=== PATIENT | female | born 1935 | race African-American/Black ===

== ENCOUNTER 2020-07-14 16:11 | Inpatient (IN) | payer MEDICARE ==
[2020-07-14 18:00] LABS: SARS-CoV-2 NAA Rapid Test Not Detected (NotDetected)
[2020-07-14] MEDS: Atorvastatin Calcium 40 MG TAB PO SCH (20:31)
[2020-07-14] MEDS: Carvedilol 3.125 MG TAB PO SCH (20:31)
[2020-07-14] MEDS: Nitroglycerin 0.4 MG TAB (25 Tab Bottle) SL PRN ×2 (23:23→23:31)
[2020-07-15 00:34] LABS: Anion Gap 14 mmol/L (10-20); BUN (Urea Nitrogen) 9 mg/dL (9.8-20.1); Calc. Creatinine Clearance 58 mL/min (70-130); Calcium 8.3 mg/dL (7.8-10.44); Carbon Dioxide 27 mmol/L (23-31); Chloride 97 mmol/L (98-107); Glucose 113 mg/dL (83-110); Lipase 68 U/L (8-78); Potassium 3.6 mmol/L (3.5-5.1); Sodium 134 mmol/L (136-145)
[2020-07-15 00:36] LABS: #Basophils 0.1 thou/uL (0.0-0.2); #Eosinphils 0.1 thou/uL (0.0-0.7); #Lymphocytes 1.1 thou/uL (1.20-3.40); #Monocytes 0.7 thou/uL (0.11-0.59); #Neutrophils 3.9 thou/uL (1.40-6.50); %Basophils 1.2 % (0.0-1.0); %Lymphocytes 19.3 % (21.0-51.0); %Monocytes 11.4 % (0.0-10.0); %Neutrophils 66.1 % (42.0-75.0); Hemoglobin 11.7 g/dL (12.0-16.0); Mean Corpuscular HGB CONC 31.7 g/dL (32.0-36.0); Mean Corpuscular Hemoglobin 26.2 pg (27.0-31.0); Mean Corpuscular Volume 82.8 fL (78.0-98.0); Mean Platelet Volume 6.9 fL (7.4-10.4); Platelet Count 269 thou/uL (130-400); RBC Distribution Width 14.1 % (11.5-14.5); Red Blood Cell (RBC) Count 4.46 mill/uL (4.20-5.40); White Blood Cell (WBC) Count 5.9 thou/uL (4.8-10.8)
[2020-07-15 00:39] LABS: Digoxin 0.61 ng/mL (0.8-2.0); Troponin I 0.712 ng/mL (< 0.028)
[2020-07-15 05:16] LABS: #Basophils 0.1 thou/uL (0.0-0.2); #Eosinphils 0.1 thou/uL (0.0-0.7); #Lymphocytes 1.2 thou/uL (1.20-3.40); #Monocytes 0.6 thou/uL (0.11-0.59); #Neutrophils 2.9 thou/uL (1.40-6.50); %Basophils 1.1 % (0.0-1.0); %Eosinophils 2.2 % (0.0-10.0); %Lymphocytes 23.7 % (21.0-51.0); %Monocytes 13.1 % (0.0-10.0); %Neutrophils 59.9 % (42.0-75.0); Hemoglobin 12.3 g/dL (12.0-16.0); Mean Corpuscular HGB CONC 30.3 g/dL (32.0-36.0); Mean Corpuscular Hemoglobin 25.7 pg (27.0-31.0); Mean Corpuscular Volume 84.7 fL (78.0-98.0); Mean Platelet Volume 7.1 fL (7.4-10.4); Platelet Count 271 thou/uL (130-400); RBC Distribution Width 14.2 % (11.5-14.5); Red Blood Cell (RBC) Count 4.78 mill/uL (4.20-5.40); White Blood Cell (WBC) Count 4.9 thou/uL (4.8-10.8)
[2020-07-15 05:33] LABS: ALT (SGPT) 38 U/L (8-55); AST (SGOT) 27 U/L (5-34); Albumin 3.1 g/dL (3.4-4.8); Alkaline Phosphatase 70 U/L (40-110); Anion Gap 15 mmol/L (10-20); BUN (Urea Nitrogen) 8 mg/dL (9.8-20.1); Bilirubin, Total 0.5 mg/dL (0.2-1.2); Calc. Creatinine Clearance 57 mL/min (70-130); Calcium 8.6 mg/dL (7.8-10.44); Carbon Dioxide 28 mmol/L (23-31); Chloride 98 mmol/L (98-107); Globulin 3.3 g/dL (2.4-3.5); Glucose 104 mg/dL (83-110); Potassium 3.8 mmol/L (3.5-5.1); Protein, Total 6.4 g/dL (5.8-8.1); Sodium 137 mmol/L (136-145)
[2020-07-15 06:32] LABS: Troponin I 2.262 ng/mL (< 0.028)
[2020-07-15] MEDS: Nitroglycerin 0.4 MG TAB (25 Tab Bottle) SL PRN ×3 (07:43→07:58)
[2020-07-15] MEDS ORDERED: Mag-Al Plus 1200 MG/1200 MG/120 MG/30 ML UDCUP ONE (08:16)
[2020-07-15] MEDS ORDERED: Lidocaine Viscous Sol 2% 15 ml UD Cup ONE (08:16)
[2020-07-15] MEDS ORDERED: Lidocaine Viscous Sol 2% 15 ml UD Cup SSP SCH (08:30)
[2020-07-15] MEDS ORDERED: Mag-Al Plus 1200 MG/1200 MG/120 MG/30 ML UDCUP PO SCH (08:30)
[2020-07-15] MEDS: Carvedilol 3.125 MG TAB PO SCH ×2 (08:38→21:07)
[2020-07-15] MEDS ORDERED: Furosemide 40 MG TAB PO SCH (09:00)
[2020-07-15] MEDS ORDERED: Clopidogrel Bisulfate 75 MG TAB PO SCH (09:00)
[2020-07-15] MEDS ORDERED: Digoxin 0.125 MG TAB PO SCH (09:00)
[2020-07-15] MEDS ORDERED: Aspirin 81 mg Enteric Coated Tablet PO SCH (09:00)
[2020-07-15 12:33] LABS: CKMB 2.4 ng/mL (0-6.6)
[2020-07-15] MEDS: Mag-Al Plus 1200 MG/1200 MG/120 MG/30 ML UDCUP PO PRN ×2 (17:03→23:40)
[2020-07-15 18:14] VITALS: BMI 27.3
[2020-07-15 19:26] VITALS: BP 104/62; TEMP 98
[2020-07-15] MEDS: Atorvastatin Calcium 40 MG TAB PO SCH (21:06)
== END 2020-07-16 02:34 | disposition short-term general hospital (02) | DRG 281 ==
LOC: NAV ACUTE 16:11
PROVIDERS: ADMIT Internal Medicine; ATTEND Internal Medicine
DX: I25.5 Ischemic cardiomyopathy (principal); I22.2 Subsequent non-ST elevation (NSTEMI) myocardial infarction; I50.22 Chronic systolic (congestive) heart failure; K21.9 Gastro-esophageal reflux disease without esophagitis; I25.110 Atherosclerotic heart disease of native coronary artery with unstable angina pectoris; I25.10 Atherosclerotic heart disease of native coronary artery without angina pectoris; E78.5 Hyperlipidemia, unspecified; Z95.5 Presence of coronary angioplasty implant and graft; Z83.3 Family history of diabetes mellitus; Z82.49 Family history of ischemic heart disease and other diseases of the circulatory system; Z88.5 Allergy status to narcotic agent; Z79.02 Long term (current) use of antithrombotics/antiplatelets; R53.81 Other malaise
CPT/HCPCS: 0240U; 36415; 80053; 80162; 82553; 83690; 84484; 85025

== ENCOUNTER 2020-07-16 00:35 | Emergency (ER) | payer MEDICARE ==
[2020-07-16 00:55] LABS: #Basophils 0.1 thou/uL (0.0-0.2); #Eosinphils 0.1 thou/uL (0.0-0.7); #Lymphocytes 1.3 thou/uL (1.20-3.40); #Monocytes 0.6 thou/uL (0.11-0.59); #Neutrophils 2.9 thou/uL (1.40-6.50); %Basophils 1.4 % (0.0-1.0); %Eosinophils 2.2 % (0.0-10.0); %Lymphocytes 26.3 % (21.0-51.0); %Monocytes 12.6 % (0.0-10.0); %Neutrophils 57.6 % (42.0-75.0); Hemoglobin 12.1 g/dL (12.0-16.0); Mean Corpuscular HGB CONC 30.8 g/dL (32.0-36.0); Mean Corpuscular Hemoglobin 25.9 pg (27.0-31.0); Mean Platelet Volume 7.4 fL (7.4-10.4); Platelet Count 283 thou/uL (130-400); RBC Distribution Width 14.1 % (11.5-14.5); Red Blood Cell (RBC) Count 4.69 mill/uL (4.20-5.40)
[2020-07-16] MEDS ORDERED: Aspirin Chewable 81 MG TAB ONE (01:07)
[2020-07-16 01:09] LABS: ALT (SGPT) 34 U/L (8-55); AST (SGOT) 24 U/L (5-34); Albumin 3.2 g/dL (3.4-4.8); Alkaline Phosphatase 76 U/L (40-110); Anion Gap 15 mmol/L (10-20); BUN (Urea Nitrogen) 8 mg/dL (9.8-20.1); Bilirubin, Total 0.4 mg/dL (0.2-1.2); Calc. Creatinine Clearance 0 mL/min (70-130); Calcium 8.8 mg/dL (7.8-10.44); Carbon Dioxide 27 mmol/L (23-31); Chloride 98 mmol/L (98-107); Globulin 3.4 g/dL (2.4-3.5); Glucose 114 mg/dL (83-110); Lipase 50 U/L (8-78); Protein, Total 6.6 g/dL (5.8-8.1); Sodium 136 mmol/L (136-145)
[2020-07-16] MEDS ORDERED: Sodium Chloride 0.9% 500 ML ONE (01:17)
[2020-07-16 01:32] LABS: CKMB 2.4 ng/mL (0-6.6)
== END 2020-07-16 02:29 | disposition short-term general hospital (02) ==
LOC: NAV ERS 00:35
DX: R07.9 Chest pain, unspecified (principal); R77.8 Other specified abnormalities of plasma proteins; I25.10 Atherosclerotic heart disease of native coronary artery without angina pectoris; I25.2 Old myocardial infarction; E78.5 Hyperlipidemia, unspecified; I11.0 Hypertensive heart disease with heart failure; I50.9 Heart failure, unspecified; Z79.899 Other long term (current) drug therapy; Z79.82 Long term (current) use of aspirin
CPT/HCPCS: 71045; 80053; 82553; 83690; 84484; 85025; 93005; J7030

== ENCOUNTER 2020-07-23 16:50 | Inpatient (IN) | payer MEDICARE ==
[2020-07-23] MEDS: Carvedilol 3.125 MG TAB PO SCH (20:38)
[2020-07-23] MEDS: Atorvastatin Calcium 40 MG TAB PO SCH (20:38)
[2020-07-23] MEDS: Simethicone Chewable 80 MG TAB PO PRN (22:22)
[2020-07-23] MEDS: Mag-Al Plus 1200 MG/1200 MG/120 MG/30 ML UDCUP PO PRN (22:25)
[2020-07-24] MEDS ORDERED: Ubidecarenone 50 MG CAP PO SCH (00:15)
[2020-07-24] MEDS: Mag-Al Plus 1200 MG/1200 MG/120 MG/30 ML UDCUP PO PRN ×2 (06:10→10:33)
[2020-07-24] MEDS: Simethicone Chewable 80 MG TAB PO PRN (06:10)
[2020-07-24 07:07] LABS: ALT (SGPT) 15 U/L (8-55); AST (SGOT) 15 U/L (5-34); Albumin 3.2 g/dL (3.4-4.8); Alkaline Phosphatase 73 U/L (40-110); Anion Gap 13 mmol/L (10-20); BUN (Urea Nitrogen) 14 mg/dL (9.8-20.1); Bilirubin, Total 0.4 mg/dL (0.2-1.2); Calc. Creatinine Clearance 66 mL/min (70-130); Calcium 8.7 mg/dL (7.8-10.44); Carbon Dioxide 29 mmol/L (23-31); Chloride 97 mmol/L (98-107); Globulin 3.3 g/dL (2.4-3.5); Glucose 138 mg/dL (83-110); Potassium 3.9 mmol/L (3.5-5.1); Protein, Total 6.5 g/dL (5.8-8.1); Sodium 135 mmol/L (136-145)
[2020-07-24 07:20] LABS: #Basophils 0.1 thou/uL (0.0-0.2); #Eosinphils 0.2 thou/uL (0.0-0.7); #Lymphocytes 1.2 thou/uL (1.20-3.40); #Monocytes 0.7 thou/uL (0.11-0.59); #Neutrophils 3.2 thou/uL (1.40-6.50); %Basophils 1.3 % (0.0-1.0); %Eosinophils 3.4 % (0.0-10.0); %Lymphocytes 22.2 % (21.0-51.0); %Monocytes 12.8 % (0.0-10.0); %Neutrophils 60.3 % (42.0-75.0); Hemoglobin 12.8 g/dL (12.0-16.0); Mean Corpuscular HGB CONC 30.3 g/dL (32.0-36.0); Mean Corpuscular Hemoglobin 25.5 pg (27.0-31.0); Mean Corpuscular Volume 84.3 fL (78.0-98.0); Mean Platelet Volume 7.6 fL (7.4-10.4); Platelet Count 257 thou/uL (130-400); RBC Distribution Width 14.6 % (11.5-14.5); Red Blood Cell (RBC) Count 5.01 mill/uL (4.20-5.40); White Blood Cell (WBC) Count 5.3 thou/uL (4.8-10.8)
[2020-07-24] MEDS: Clopidogrel Bisulfate 75 MG TAB PO SCH (09:12)
[2020-07-24] MEDS: Digoxin 0.125 MG TAB PO SCH (09:13)
[2020-07-24] MEDS: Aspirin 81 mg Enteric Coated Tablet PO SCH (09:13)
[2020-07-24] MEDS: Magnesium Oxide 400 MG TAB PO SCH ×2 (09:13→17:35)
[2020-07-24] MEDS: Carvedilol 3.125 MG TAB PO SCH ×2 (09:13→20:17)
[2020-07-24] MEDS: clonazePAM 0.5 MG TAB PO PRN ×2 (10:33→20:16)
[2020-07-24] MEDS: Ubidecarenone 50 MG CAP PO SCH (17:35)
[2020-07-24] MEDS: PRENATAL VITAMINS PO SCH (17:36)
[2020-07-24] MEDS: Atorvastatin Calcium 40 MG TAB PO SCH (20:16)
[2020-07-25] MEDS: Torsemide 20 MG TAB PO SCH ×2 (07:19→12:00)
[2020-07-25] MEDS: Aspirin 81 mg Enteric Coated Tablet PO SCH (09:04)
[2020-07-25] MEDS: Magnesium Oxide 400 MG TAB PO SCH ×2 (09:05→16:14)
[2020-07-25] MEDS: Carvedilol 3.125 MG TAB PO SCH ×2 (09:05→21:23)
[2020-07-25] MEDS: Clopidogrel Bisulfate 75 MG TAB PO SCH (09:06)
[2020-07-25] MEDS: Digoxin 0.125 MG TAB PO SCH (09:06)
[2020-07-25] MEDS: Ubidecarenone 50 MG CAP PO SCH (16:13)
[2020-07-25] MEDS: PRENATAL VITAMINS PO SCH (16:14)
[2020-07-25] MEDS: clonazePAM 0.5 MG TAB PO PRN (16:14)
[2020-07-25] MEDS: Nitroglycerin 0.4 MG TAB (25 Tab Bottle) SL PRN ×2 (16:21→16:45)
[2020-07-25] MEDS: Atorvastatin Calcium 40 MG TAB PO SCH (21:23)
[2020-07-25] MEDS: Mag-Al Plus 1200 MG/1200 MG/120 MG/30 ML UDCUP PO PRN (21:30)
[2020-07-25] MEDS: Simethicone Chewable 80 MG TAB PO PRN (23:03)
[2020-07-26] MEDS: Mag-Al Plus 1200 MG/1200 MG/120 MG/30 ML UDCUP PO PRN (02:20)
[2020-07-26] MEDS: clonazePAM 0.5 MG TAB PO PRN ×2 (02:20→19:03)
[2020-07-26] MEDS: Aspirin 81 mg Enteric Coated Tablet PO SCH (09:13)
[2020-07-26] MEDS: Magnesium Oxide 400 MG TAB PO SCH ×2 (09:14→16:23)
[2020-07-26] MEDS: Clopidogrel Bisulfate 75 MG TAB PO SCH (09:14)
[2020-07-26] MEDS: Digoxin 0.125 MG TAB PO SCH (09:14)
[2020-07-26] MEDS: Carvedilol 3.125 MG TAB PO SCH ×2 (09:16→20:52)
[2020-07-26] MEDS: Torsemide 20 MG TAB PO SCH (12:28)
[2020-07-26] MEDS: Ubidecarenone 50 MG CAP PO SCH (16:23)
[2020-07-26] MEDS: PRENATAL VITAMINS PO SCH (16:24)
[2020-07-26] MEDS: Nitroglycerin 0.4 MG TAB (25 Tab Bottle) SL PRN (19:04)
[2020-07-26] MEDS: Atorvastatin Calcium 40 MG TAB PO SCH (20:52)
[2020-07-27] MEDS: Clopidogrel Bisulfate 75 MG TAB PO SCH (08:12)
[2020-07-27] MEDS: Aspirin 81 mg Enteric Coated Tablet PO SCH (08:12)
[2020-07-27] MEDS: Magnesium Oxide 400 MG TAB PO SCH ×2 (08:13→17:40)
[2020-07-27] MEDS: Mag-Al Plus 1200 MG/1200 MG/120 MG/30 ML UDCUP PO PRN ×2 (08:20→13:35)
[2020-07-27] MEDS: clonazePAM 0.5 MG TAB PO PRN ×2 (08:21→20:42)
[2020-07-27] MEDS: Digoxin 0.125 MG TAB PO SCH (08:27)
[2020-07-27] MEDS: Carvedilol 3.125 MG TAB PO SCH ×2 (08:37→20:41)
[2020-07-27] MEDS: Simethicone Chewable 80 MG TAB PO PRN (11:18)
[2020-07-27] MEDS: Torsemide 20 MG TAB PO SCH (12:56)
[2020-07-27] MEDS: Ubidecarenone 50 MG CAP PO SCH (17:40)
[2020-07-27] MEDS: PRENATAL VITAMINS PO SCH (17:41)
[2020-07-27] MEDS: Atorvastatin Calcium 40 MG TAB PO SCH (20:40)
[2020-07-28] MEDS: Mag-Al Plus 1200 MG/1200 MG/120 MG/30 ML UDCUP PO PRN (06:25)
[2020-07-28] MEDS: Digoxin 0.125 MG TAB PO SCH (09:07)
[2020-07-28] MEDS: Magnesium Oxide 400 MG TAB PO SCH ×2 (09:07→16:00)
[2020-07-28] MEDS: Aspirin 81 mg Enteric Coated Tablet PO SCH (09:07)
[2020-07-28] MEDS: Clopidogrel Bisulfate 75 MG TAB PO SCH (09:07)
[2020-07-28] MEDS: Carvedilol 3.125 MG TAB PO SCH ×2 (09:07→21:03)
[2020-07-28] MEDS: Torsemide 20 MG TAB PO SCH (11:56)
[2020-07-28] MEDS: Simethicone Chewable 80 MG TAB PO PRN (11:56)
[2020-07-28] MEDS ORDERED: Ondansetron ODT 4 MG TAB PO PRN (15:51)
[2020-07-28] MEDS: Ubidecarenone 50 MG CAP PO SCH (16:00)
[2020-07-28] MEDS: PRENATAL VITAMINS PO SCH (16:30)
[2020-07-28] MEDS: Atorvastatin Calcium 40 MG TAB PO SCH (21:02)
[2020-07-28] MEDS: clonazePAM 0.5 MG TAB PO PRN (21:03)
[2020-07-29] MEDS: Mag-Al Plus 1200 MG/1200 MG/120 MG/30 ML UDCUP PO PRN ×2 (04:05→20:58)
[2020-07-29] MEDS: Clopidogrel Bisulfate 75 MG TAB PO SCH (08:32)
[2020-07-29] MEDS: Digoxin 0.125 MG TAB PO SCH (08:32)
[2020-07-29] MEDS: Magnesium Oxide 400 MG TAB PO SCH ×2 (08:32→17:37)
[2020-07-29] MEDS: Aspirin 81 mg Enteric Coated Tablet PO SCH (08:32)
[2020-07-29] MEDS: Carvedilol 3.125 MG TAB PO SCH ×2 (08:32→20:56)
[2020-07-29] MEDS: Torsemide 20 MG TAB PO SCH (12:48)
[2020-07-29] MEDS: PRENATAL VITAMINS PO SCH (17:37)
[2020-07-29] MEDS: Ubidecarenone 50 MG CAP PO SCH (17:37)
[2020-07-29] MEDS: Simethicone Chewable 80 MG TAB PO PRN (18:44)
[2020-07-29] MEDS: Atorvastatin Calcium 40 MG TAB PO SCH (20:56)
[2020-07-29] MEDS: clonazePAM 0.5 MG TAB PO PRN (20:57)
[2020-07-30] MEDS: Mag-Al Plus 1200 MG/1200 MG/120 MG/30 ML UDCUP PO PRN (05:44)
[2020-07-30] MEDS: Aspirin 81 mg Enteric Coated Tablet PO SCH (08:30)
[2020-07-30] MEDS: Digoxin 0.125 MG TAB PO SCH (08:30)
[2020-07-30] MEDS: Carvedilol 3.125 MG TAB PO SCH ×2 (08:30→21:36)
[2020-07-30] MEDS: Clopidogrel Bisulfate 75 MG TAB PO SCH (08:30)
[2020-07-30] MEDS: Magnesium Oxide 400 MG TAB PO SCH ×2 (08:30→17:18)
[2020-07-30] MEDS: Torsemide 20 MG TAB PO SCH (12:16)
[2020-07-30] MEDS: Ubidecarenone 50 MG CAP PO SCH (17:19)
[2020-07-30] MEDS: PRENATAL VITAMINS PO SCH (17:19)
[2020-07-30] MEDS: Atorvastatin Calcium 40 MG TAB PO SCH (21:36)
[2020-07-31] MEDS: Aspirin 81 mg Enteric Coated Tablet PO SCH (08:34)
[2020-07-31] MEDS: Carvedilol 3.125 MG TAB PO SCH ×3 (08:34→21:50)
[2020-07-31] MEDS: Clopidogrel Bisulfate 75 MG TAB PO SCH (08:34)
[2020-07-31] MEDS: Magnesium Oxide 400 MG TAB PO SCH ×2 (08:34→17:54)
[2020-07-31] MEDS: Digoxin 0.125 MG TAB PO SCH (08:35)
[2020-07-31] MEDS: Torsemide 20 MG TAB PO SCH (11:42)
[2020-07-31] MEDS: Ubidecarenone 50 MG CAP PO SCH (17:54)
[2020-07-31] MEDS: PRENATAL VITAMINS PO SCH (17:54)
[2020-07-31] MEDS: Mirtazapine 15 MG TAB PO SCH (20:44)
[2020-07-31] MEDS: Atorvastatin Calcium 40 MG TAB PO SCH (20:44)
[2020-08-01] MEDS: Clopidogrel Bisulfate 75 MG TAB PO SCH (08:34)
[2020-08-01] MEDS: Magnesium Oxide 400 MG TAB PO SCH ×2 (08:34→17:35)
[2020-08-01] MEDS: Digoxin 0.125 MG TAB PO SCH (08:34)
[2020-08-01] MEDS: Aspirin 81 mg Enteric Coated Tablet PO SCH (08:35)
[2020-08-01] MEDS: Carvedilol 3.125 MG TAB PO SCH ×2 (08:35→20:25)
[2020-08-01] MEDS: Torsemide 20 MG TAB PO SCH (12:55)
[2020-08-01] MEDS: PRENATAL VITAMINS PO SCH (17:34)
[2020-08-01] MEDS: Ubidecarenone 50 MG CAP PO SCH (17:34)
[2020-08-01] MEDS: Atorvastatin Calcium 40 MG TAB PO SCH (20:25)
[2020-08-01] MEDS: Mirtazapine 15 MG TAB PO SCH (20:26)
[2020-08-02] MEDS: Magnesium Oxide 400 MG TAB PO SCH ×2 (08:18→16:25)
[2020-08-02] MEDS: Clopidogrel Bisulfate 75 MG TAB PO SCH (08:18)
[2020-08-02] MEDS: Digoxin 0.125 MG TAB PO SCH (08:18)
[2020-08-02] MEDS: Carvedilol 3.125 MG TAB PO SCH ×2 (08:20→21:16)
[2020-08-02] MEDS: Aspirin 81 mg Enteric Coated Tablet PO SCH (08:20)
[2020-08-02] MEDS: Torsemide 20 MG TAB PO SCH (12:35)
[2020-08-02] MEDS: PRENATAL VITAMINS PO SCH (16:19)
[2020-08-02] MEDS: Ubidecarenone 50 MG CAP PO SCH (16:25)
[2020-08-02] MEDS: Atorvastatin Calcium 40 MG TAB PO SCH (21:16)
[2020-08-02] MEDS: Mirtazapine 15 MG TAB PO SCH (21:16)
[2020-08-03] MEDS: Clopidogrel Bisulfate 75 MG TAB PO SCH (08:52)
[2020-08-03] MEDS: Carvedilol 3.125 MG TAB PO SCH ×2 (08:52→20:16)
[2020-08-03] MEDS: Magnesium Oxide 400 MG TAB PO SCH ×2 (08:52→16:06)
[2020-08-03] MEDS: Aspirin 81 mg Enteric Coated Tablet PO SCH (08:52)
[2020-08-03] MEDS: Digoxin 0.125 MG TAB PO SCH (08:52)
[2020-08-03] MEDS: Torsemide 20 MG TAB PO SCH (11:40)
[2020-08-03] MEDS: Ubidecarenone 50 MG CAP PO SCH (16:06)
[2020-08-03] MEDS: PRENATAL VITAMINS PO SCH (16:06)
[2020-08-03] MEDS: Atorvastatin Calcium 40 MG TAB PO SCH (20:16)
[2020-08-03] MEDS: Mirtazapine 15 MG TAB PO SCH (20:16)
[2020-08-04] MEDS: Magnesium Oxide 400 MG TAB PO SCH ×2 (08:54→16:12)
[2020-08-04] MEDS: Aspirin 81 mg Enteric Coated Tablet PO SCH (08:55)
[2020-08-04] MEDS: Clopidogrel Bisulfate 75 MG TAB PO SCH (08:55)
[2020-08-04] MEDS: Carvedilol 3.125 MG TAB PO SCH ×2 (08:56→21:23)
[2020-08-04] MEDS: Digoxin 0.125 MG TAB PO SCH (08:56)
[2020-08-04] MEDS: Torsemide 20 MG TAB PO SCH (12:31)
[2020-08-04] MEDS: Ubidecarenone 50 MG CAP PO SCH (16:12)
[2020-08-04] MEDS: PRENATAL VITAMINS PO SCH (16:14)
[2020-08-04] MEDS: Mirtazapine 15 MG TAB PO SCH (21:22)
[2020-08-04] MEDS: Atorvastatin Calcium 40 MG TAB PO SCH (21:22)
[2020-08-05] MEDS: Aspirin 81 mg Enteric Coated Tablet PO SCH (08:47)
[2020-08-05] MEDS: Digoxin 0.125 MG TAB PO SCH (08:47)
[2020-08-05] MEDS: Clopidogrel Bisulfate 75 MG TAB PO SCH (08:47)
[2020-08-05] MEDS: Magnesium Oxide 400 MG TAB PO SCH ×2 (08:47→17:43)
[2020-08-05] MEDS: Carvedilol 3.125 MG TAB PO SCH ×2 (08:48→21:22)
[2020-08-05] MEDS: Torsemide 20 MG TAB PO SCH (12:56)
[2020-08-05 16:08] VITALS: BMI 30.3
[2020-08-05] MEDS: PRENATAL VITAMINS PO SCH (17:43)
[2020-08-05] MEDS: Ubidecarenone 50 MG CAP PO SCH (17:43)
[2020-08-05] MEDS: Atorvastatin Calcium 40 MG TAB PO SCH (21:22)
[2020-08-05] MEDS: Mirtazapine 15 MG TAB PO SCH (21:22)
[2020-08-06] MEDS: Magnesium Oxide 400 MG TAB PO SCH ×2 (08:37→16:28)
[2020-08-06] MEDS: Clopidogrel Bisulfate 75 MG TAB PO SCH (08:37)
[2020-08-06] MEDS: Aspirin 81 mg Enteric Coated Tablet PO SCH (08:37)
[2020-08-06] MEDS: Digoxin 0.125 MG TAB PO SCH (08:37)
[2020-08-06] MEDS: Carvedilol 3.125 MG TAB PO SCH ×2 (08:37→20:57)
[2020-08-06] MEDS: Torsemide 20 MG TAB PO SCH (11:40)
[2020-08-06] MEDS: Ubidecarenone 50 MG CAP PO SCH (16:28)
[2020-08-06] MEDS: PRENATAL VITAMINS PO SCH (16:31)
[2020-08-06] MEDS: Atorvastatin Calcium 40 MG TAB PO SCH (20:56)
[2020-08-06] MEDS: Mirtazapine 15 MG TAB PO SCH (21:01)
[2020-08-07 08:41] VITALS: BP 111/70; TEMP 97.2
[2020-08-07] MEDS: Aspirin 81 mg Enteric Coated Tablet PO SCH (09:00)
[2020-08-07] MEDS: Carvedilol 3.125 MG TAB PO SCH (09:00)
[2020-08-07] MEDS: Magnesium Oxide 400 MG TAB PO SCH ×2 (09:00→16:31)
[2020-08-07] MEDS: Digoxin 0.125 MG TAB PO SCH (09:01)
[2020-08-07] MEDS: Clopidogrel Bisulfate 75 MG TAB PO SCH (09:01)
[2020-08-07] MEDS: Torsemide 20 MG TAB PO SCH (11:32)
[2020-08-07] MEDS: Ubidecarenone 50 MG CAP PO SCH (16:31)
[2020-08-07] MEDS: PRENATAL VITAMINS PO SCH (16:32)
== END 2020-08-07 19:00 | disposition home health service (06) | DRG 947 ==
LOC: NAV ACUTE 16:50
PROVIDERS: ADMIT Internal Medicine; ATTEND Internal Medicine
DX: R53.81 Other malaise (principal); I22.2 Subsequent non-ST elevation (NSTEMI) myocardial infarction; I50.22 Chronic systolic (congestive) heart failure; I25.10 Atherosclerotic heart disease of native coronary artery without angina pectoris; I25.5 Ischemic cardiomyopathy; E78.5 Hyperlipidemia, unspecified; K21.9 Gastro-esophageal reflux disease without esophagitis; F41.9 Anxiety disorder, unspecified; R63.0 Anorexia; Z95.5 Presence of coronary angioplasty implant and graft; Z88.5 Allergy status to narcotic agent; Z91.011 Allergy to milk products; Z68.30 Body mass index [BMI] 30.0-30.9, adult
CPT/HCPCS: 71045; 80053; 85025; Q0162

== ENCOUNTER 2020-08-29 17:03 | Inpatient (IN) | payer MEDICARE ==
[2020-08-29] MEDS ORDERED: Nitroglycerin 0.4 MG TAB (25 Tab Bottle) SL PRN (23:28)
[2020-08-30 05:35] LABS: #Basophils 0.1 thou/uL (0.0-0.2); #Eosinphils 0.3 thou/uL (0.0-0.7); #Lymphocytes 1.7 thou/uL (1.20-3.40); #Monocytes 0.7 thou/uL (0.11-0.59); #Neutrophils 2.9 thou/uL (1.40-6.50); %Basophils 1.4 % (0.0-1.0); %Eosinophils 5.4 % (0.0-10.0); %Lymphocytes 30.2 % (21.0-51.0); %Monocytes 12.9 % (0.0-10.0); %Neutrophils 50.2 % (42.0-75.0); Hemoglobin 12.8 g/dL (12.0-16.0); Mean Corpuscular HGB CONC 31.2 g/dL (32.0-36.0); Mean Corpuscular Hemoglobin 26.1 pg (27.0-31.0); Mean Corpuscular Volume 83.6 fL (78.0-98.0); Mean Platelet Volume 7.7 fL (7.4-10.4); Platelet Count 235 thou/uL (130-400); RBC Distribution Width 16.6 % (11.5-14.5); White Blood Cell (WBC) Count 5.7 thou/uL (4.8-10.8)
[2020-08-30 05:49] LABS: ALT (SGPT) 10 U/L (8-55); AST (SGOT) 17 U/L (5-34); Albumin 3.1 g/dL (3.4-4.8); Alkaline Phosphatase 54 U/L (40-110); Anion Gap 15 mmol/L (10-20); BUN (Urea Nitrogen) 11 mg/dL (9.8-20.1); Bilirubin, Total 0.7 mg/dL (0.2-1.2); Calc. Creatinine Clearance 57 mL/min (70-130); Calcium 8.7 mg/dL (7.8-10.44); Carbon Dioxide 26 mmol/L (23-31); Chloride 100 mmol/L (98-107); Globulin 3.5 g/dL (2.4-3.5); Glucose 82 mg/dL (83-110); Potassium 3.9 mmol/L (3.5-5.1); Protein, Total 6.6 g/dL (5.8-8.1); Sodium 137 mmol/L (136-145)
[2020-08-30] MEDS: Polyethylene Glycol 3350 17 GM Packet PO SCH (09:40)
[2020-08-30] MEDS: Aspirin 81 mg Enteric Coated Tablet PO SCH (09:40)
[2020-08-30] MEDS: Potassium Chloride 20 MEQ TAB PO SCH (09:40)
[2020-08-30] MEDS: Clopidogrel Bisulfate 75 MG TAB PO SCH (09:41)
[2020-08-30] MEDS: Furosemide 40 MG TAB PO SCH ×2 (09:41→15:13)
[2020-08-30] MEDS: Spironolactone 25 MG TAB PO SCH (09:41)
[2020-08-30] MEDS: Carvedilol 3.125 MG TAB PO SCH ×2 (09:41→21:00)
[2020-08-30] MEDS: [UNRECOGNIZED DRUG - REMARK] PO SCH (16:35)
[2020-08-30] MEDS: Ubidecarenone 50 MG CAP PO SCH (16:36)
[2020-08-30] MEDS: Atorvastatin Calcium 40 MG TAB PO SCH (21:00)
[2020-08-30] MEDS: Simethicone Chewable 80 MG TAB PO PRN (21:00)
[2020-08-31] MEDS: Spironolactone 25 MG TAB PO SCH (12:05)
[2020-08-31] MEDS: Clopidogrel Bisulfate 75 MG TAB PO SCH (12:06)
[2020-08-31] MEDS: Furosemide 40 MG TAB PO SCH ×2 (12:06→13:24)
[2020-08-31] MEDS: Carvedilol 3.125 MG TAB PO SCH ×2 (12:06→20:13)
[2020-08-31] MEDS: Polyethylene Glycol 3350 17 GM Packet PO SCH (12:06)
[2020-08-31] MEDS: Potassium Chloride 20 MEQ TAB PO SCH (12:06)
[2020-08-31] MEDS: Aspirin 81 mg Enteric Coated Tablet PO SCH (12:06)
[2020-08-31] MEDS: Mag-Al Plus 1200 MG/1200 MG/120 MG/30 ML UDCUP PO PRN ×2 (13:23→20:12)
[2020-08-31] MEDS: clonazePAM 0.5 MG TAB PO PRN ×2 (13:23→20:23)
[2020-08-31] MEDS: Ubidecarenone 50 MG CAP PO SCH (18:26)
[2020-08-31] MEDS: [UNRECOGNIZED DRUG - REMARK] PO SCH (18:32)
[2020-08-31] MEDS: Atorvastatin Calcium 40 MG TAB PO SCH (20:13)
[2020-09-01] MEDS: Aspirin 81 mg Enteric Coated Tablet PO SCH (08:48)
[2020-09-01] MEDS: Carvedilol 3.125 MG TAB PO SCH ×2 (08:48→21:00)
[2020-09-01] MEDS: Spironolactone 25 MG TAB PO SCH (08:48)
[2020-09-01] MEDS: Potassium Chloride 20 MEQ TAB PO SCH (08:49)
[2020-09-01] MEDS: Furosemide 40 MG TAB PO SCH ×2 (08:49→14:59)
[2020-09-01] MEDS: Clopidogrel Bisulfate 75 MG TAB PO SCH (08:49)
[2020-09-01] MEDS: Polyethylene Glycol 3350 17 GM Packet PO SCH (08:49)
[2020-09-01] MEDS: Ubidecarenone 50 MG CAP PO SCH (17:22)
[2020-09-01] MEDS: [UNRECOGNIZED DRUG - REMARK] PO SCH (18:29)
[2020-09-01] MEDS: Atorvastatin Calcium 40 MG TAB PO SCH (21:00)
[2020-09-02] MEDS: Carvedilol 3.125 MG TAB PO SCH ×2 (09:16→21:48)
[2020-09-02] MEDS: Spironolactone 25 MG TAB PO SCH (09:16)
[2020-09-02] MEDS: Aspirin 81 mg Enteric Coated Tablet PO SCH (09:16)
[2020-09-02] MEDS: Potassium Chloride 20 MEQ TAB PO SCH (09:17)
[2020-09-02] MEDS: Polyethylene Glycol 3350 17 GM Packet PO SCH (09:17)
[2020-09-02] MEDS: Clopidogrel Bisulfate 75 MG TAB PO SCH (09:17)
[2020-09-02] MEDS: Furosemide 40 MG TAB PO SCH ×2 (09:17→14:52)
[2020-09-02] MEDS: Simethicone Chewable 80 MG TAB PO PRN (09:17)
[2020-09-02] MEDS: [UNRECOGNIZED DRUG - REMARK] PO SCH (17:19)
[2020-09-02] MEDS: Ubidecarenone 50 MG CAP PO SCH (17:20)
[2020-09-02] MEDS: Atorvastatin Calcium 40 MG TAB PO SCH (21:48)
[2020-09-03] MEDS: Potassium Chloride 20 MEQ TAB PO SCH (10:04)
[2020-09-03] MEDS: Aspirin 81 mg Enteric Coated Tablet PO SCH (10:04)
[2020-09-03] MEDS: Carvedilol 3.125 MG TAB PO SCH ×2 (10:05→21:42)
[2020-09-03] MEDS: Spironolactone 25 MG TAB PO SCH (10:05)
[2020-09-03] MEDS: Furosemide 40 MG TAB PO SCH ×2 (10:05→13:12)
[2020-09-03] MEDS: Clopidogrel Bisulfate 75 MG TAB PO SCH (10:05)
[2020-09-03] MEDS: Polyethylene Glycol 3350 17 GM Packet PO SCH ×2 (10:06→10:10)
[2020-09-03] MEDS: Ubidecarenone 50 MG CAP PO SCH (17:42)
[2020-09-03] MEDS: [UNRECOGNIZED DRUG - REMARK] PO SCH (17:42)
[2020-09-03] MEDS: Atorvastatin Calcium 40 MG TAB PO SCH (21:42)
[2020-09-04] MEDS: Clopidogrel Bisulfate 75 MG TAB PO SCH (09:45)
[2020-09-04] MEDS: Aspirin 81 mg Enteric Coated Tablet PO SCH (09:45)
[2020-09-04] MEDS: Spironolactone 25 MG TAB PO SCH (09:45)
[2020-09-04] MEDS: Potassium Chloride 20 MEQ TAB PO SCH (09:45)
[2020-09-04] MEDS: Carvedilol 3.125 MG TAB PO SCH ×2 (09:45→22:04)
[2020-09-04] MEDS: Polyethylene Glycol 3350 17 GM Packet PO SCH (09:46)
[2020-09-04] MEDS: Furosemide 40 MG TAB PO SCH ×2 (09:46→13:13)
[2020-09-04] MEDS: [UNRECOGNIZED DRUG - REMARK] PO SCH (17:26)
[2020-09-04] MEDS: Ubidecarenone 50 MG CAP PO SCH (17:26)
[2020-09-04] MEDS: Atorvastatin Calcium 40 MG TAB PO SCH (22:04)
[2020-09-04] MEDS: Mirtazapine 15 MG TAB PO SCH (22:04)
[2020-09-05] MEDS: Carvedilol 3.125 MG TAB PO SCH ×2 (09:51→21:34)
[2020-09-05] MEDS: Furosemide 40 MG TAB PO SCH ×2 (09:51→15:02)
[2020-09-05] MEDS: Potassium Chloride 20 MEQ TAB PO SCH (09:51)
[2020-09-05] MEDS: Polyethylene Glycol 3350 17 GM Packet PO SCH (09:52)
[2020-09-05] MEDS: Clopidogrel Bisulfate 75 MG TAB PO SCH (09:52)
[2020-09-05] MEDS: Aspirin 81 mg Enteric Coated Tablet PO SCH (09:52)
[2020-09-05] MEDS: Spironolactone 25 MG TAB PO SCH (09:52)
[2020-09-05] MEDS: [UNRECOGNIZED DRUG - REMARK] PO SCH (16:36)
[2020-09-05] MEDS: Ubidecarenone 50 MG CAP PO SCH (16:39)
[2020-09-05] MEDS: Mirtazapine 15 MG TAB PO SCH (21:34)
[2020-09-05] MEDS: Atorvastatin Calcium 40 MG TAB PO SCH (21:35)
[2020-09-06] MEDS: Potassium Chloride 20 MEQ TAB PO SCH (09:43)
[2020-09-06] MEDS: Furosemide 40 MG TAB PO SCH ×2 (09:43→14:28)
[2020-09-06] MEDS: Clopidogrel Bisulfate 75 MG TAB PO SCH (09:43)
[2020-09-06] MEDS: Polyethylene Glycol 3350 17 GM Packet PO SCH (09:43)
[2020-09-06] MEDS: Aspirin 81 mg Enteric Coated Tablet PO SCH (09:43)
[2020-09-06] MEDS: clonazePAM 0.5 MG TAB PO PRN (10:27)
[2020-09-06] MEDS: Carvedilol 3.125 MG TAB PO SCH ×2 (11:22→20:47)
[2020-09-06] MEDS: Spironolactone 25 MG TAB PO SCH (11:22)
[2020-09-06] MEDS: [UNRECOGNIZED DRUG - REMARK] PO SCH (17:29)
[2020-09-06] MEDS: Ubidecarenone 50 MG CAP PO SCH (17:29)
[2020-09-06] MEDS: Atorvastatin Calcium 40 MG TAB PO SCH (20:46)
[2020-09-06] MEDS: Mirtazapine 15 MG TAB PO SCH (20:46)
[2020-09-07 05:41] LABS: #Basophils 0.1 thou/uL (0.0-0.2); #Eosinphils 0.2 thou/uL (0.0-0.7); #Lymphocytes 1.9 thou/uL (1.20-3.40); #Monocytes 0.5 thou/uL (0.11-0.59); #Neutrophils 2.1 thou/uL (1.40-6.50); %Basophils 1.8 % (0.0-1.0); %Eosinophils 3.5 % (0.0-10.0); %Lymphocytes 39.7 % (21.0-51.0); %Monocytes 11.3 % (0.0-10.0); %Neutrophils 43.7 % (42.0-75.0); Hemoglobin 13.4 g/dL (12.0-16.0); Mean Corpuscular HGB CONC 31.3 g/dL (32.0-36.0); Mean Corpuscular Hemoglobin 26.3 pg (27.0-31.0); Mean Corpuscular Volume 84.2 fL (78.0-98.0); Mean Platelet Volume 7.8 fL (7.4-10.4); Platelet Count 226 thou/uL (130-400); RBC Distribution Width 16.7 % (11.5-14.5); Red Blood Cell (RBC) Count 5.08 mill/uL (4.20-5.40); White Blood Cell (WBC) Count 4.7 thou/uL (4.8-10.8)
[2020-09-07 05:57] LABS: ALT (SGPT) 12 U/L (8-55); AST (SGOT) 21 U/L (5-34); Albumin 3.1 g/dL (3.4-4.8); Alkaline Phosphatase 57 U/L (40-110); Anion Gap 16 mmol/L (10-20); BUN (Urea Nitrogen) 12 mg/dL (9.8-20.1); Bilirubin, Total 0.7 mg/dL (0.2-1.2); Calc. Creatinine Clearance 46 mL/min (70-130); Carbon Dioxide 18 mmol/L (23-31); Chloride 101 mmol/L (98-107); Globulin 3.8 g/dL (2.4-3.5); Glucose 81 mg/dL (83-110); Potassium 4.1 mmol/L (3.5-5.1); Protein, Total 6.9 g/dL (5.8-8.1); Sodium 131 mmol/L (136-145)
[2020-09-07] MEDS: Potassium Chloride 20 MEQ TAB PO SCH (08:17)
[2020-09-07] MEDS: Clopidogrel Bisulfate 75 MG TAB PO SCH (08:18)
[2020-09-07] MEDS: Aspirin 81 mg Enteric Coated Tablet PO SCH (08:18)
[2020-09-07] MEDS: Carvedilol 3.125 MG TAB PO SCH ×2 (08:18→20:34)
[2020-09-07] MEDS: Furosemide 40 MG TAB PO SCH ×2 (08:18→14:18)
[2020-09-07] MEDS: Spironolactone 25 MG TAB PO SCH (08:18)
[2020-09-07] MEDS: Polyethylene Glycol 3350 17 GM Packet PO SCH (08:19)
[2020-09-07] MEDS: [UNRECOGNIZED DRUG - REMARK] PO SCH (08:19)
[2020-09-07] MEDS: Ubidecarenone 50 MG CAP PO SCH (17:08)
[2020-09-07] MEDS: Mirtazapine 15 MG TAB PO SCH (20:35)
[2020-09-07] MEDS: Atorvastatin Calcium 40 MG TAB PO SCH (20:35)
[2020-09-08] MEDS: Aspirin 81 mg Enteric Coated Tablet PO SCH (08:35)
[2020-09-08] MEDS: Carvedilol 3.125 MG TAB PO SCH ×2 (08:36→20:39)
[2020-09-08] MEDS: Clopidogrel Bisulfate 75 MG TAB PO SCH (08:36)
[2020-09-08] MEDS: Spironolactone 25 MG TAB PO SCH (08:36)
[2020-09-08] MEDS: Furosemide 40 MG TAB PO SCH ×2 (08:36→14:17)
[2020-09-08] MEDS: Potassium Chloride 20 MEQ TAB PO SCH (08:37)
[2020-09-08] MEDS: Polyethylene Glycol 3350 17 GM Packet PO SCH (08:37)
[2020-09-08] MEDS: Simethicone Chewable 80 MG TAB PO PRN (14:17)
[2020-09-08] MEDS: Ubidecarenone 50 MG CAP PO SCH (17:29)
[2020-09-08] MEDS: [UNRECOGNIZED DRUG - REMARK] PO SCH (17:30)
[2020-09-08] MEDS: Atorvastatin Calcium 40 MG TAB PO SCH (20:39)
[2020-09-08] MEDS: Mirtazapine 15 MG TAB PO SCH (20:39)
[2020-09-09] MEDS: Aspirin 81 mg Enteric Coated Tablet PO SCH (08:50)
[2020-09-09] MEDS: Polyethylene Glycol 3350 17 GM Packet PO SCH (08:50)
[2020-09-09] MEDS: Potassium Chloride 20 MEQ TAB PO SCH (08:50)
[2020-09-09] MEDS: Clopidogrel Bisulfate 75 MG TAB PO SCH (08:52)
[2020-09-09] MEDS: Spironolactone 25 MG TAB PO SCH (08:52)
[2020-09-09] MEDS: Furosemide 40 MG TAB PO SCH ×2 (08:52→13:54)
[2020-09-09] MEDS: Carvedilol 3.125 MG TAB PO SCH ×2 (08:53→20:38)
[2020-09-09] MEDS: Ubidecarenone 50 MG CAP PO SCH (17:39)
[2020-09-09] MEDS: [UNRECOGNIZED DRUG - REMARK] PO SCH (17:39)
[2020-09-09 20:03] VITALS: BMI 25.5
[2020-09-09] MEDS: Mirtazapine 15 MG TAB PO SCH (20:38)
[2020-09-09] MEDS: Atorvastatin Calcium 40 MG TAB PO SCH (20:38)
[2020-09-10 07:45] VITALS: TEMP 97.5
[2020-09-10] MEDS: Furosemide 40 MG TAB PO SCH ×2 (09:45→14:49)
[2020-09-10] MEDS: Carvedilol 3.125 MG TAB PO SCH (09:45)
[2020-09-10] MEDS: Spironolactone 25 MG TAB PO SCH (09:45)
[2020-09-10] MEDS: Aspirin 81 mg Enteric Coated Tablet PO SCH (09:45)
[2020-09-10] MEDS: Potassium Chloride 20 MEQ TAB PO SCH (09:45)
[2020-09-10] MEDS: Clopidogrel Bisulfate 75 MG TAB PO SCH (09:45)
[2020-09-10] MEDS: Polyethylene Glycol 3350 17 GM Packet PO SCH (09:46)
[2020-09-10 15:05] VITALS: BP 102/56
[2020-09-10] MEDS: [UNRECOGNIZED DRUG - REMARK] PO SCH (17:05)
[2020-09-10] MEDS: Ubidecarenone 50 MG CAP PO SCH (17:05)
== END 2020-09-10 18:20 | disposition home health service (06) | DRG 292 ==
LOC: NAV ACUTE 19:53
PROVIDERS: ADMIT Internal Medicine; ATTEND Internal Medicine
DX: I50.23 Acute on chronic systolic (congestive) heart failure (principal); E87.1 Hypo-osmolality and hyponatremia; I25.5 Ischemic cardiomyopathy; I25.10 Atherosclerotic heart disease of native coronary artery without angina pectoris; E78.5 Hyperlipidemia, unspecified; K21.9 Gastro-esophageal reflux disease without esophagitis; F32.9 Major depressive disorder, single episode, unspecified; R53.81 Other malaise; R63.0 Anorexia; Z20.822 Contact with and (suspected) exposure to COVID-19; F41.9 Anxiety disorder, unspecified; Z98.61 Coronary angioplasty status; Z88.5 Allergy status to narcotic agent; I25.2 Old myocardial infarction
CPT/HCPCS: 71045; 80053; 85025